=== PATIENT | female | born 1950 | race Caucasian/White ===

== ENCOUNTER → 2017-08-28 07:39 | Outpatient (CLI) | payer MEDICARE, SELFPAY ==
[2017-08-28 08:11] LABS: Add Manual Diff / Slide Review NO; Basophils Percent Auto 0.5 % (0-2); Eosinophils Percent Auto 3.4 % (2-4); Hemoglobin 13.6 g/dL (12.0-16.0); Lymphocytes Percent Auto 26.9 % (25-40); Mean Corpuscular Hemoglobin 31.9 PG (26-34); Monocytes Percent Auto 8.2 % (3-14); Neutrophils Absolute Auto 3300 /uL (3000-5900); Platelet Count 308 X10^3/uL (150-400); Red Blood Cell Count 4.25 X10^6/uL (4.0-5.2); Red Cell Distribution Width 13.9 % (11.6-14.8); White Blood Cell Count 5.5 X10^3/uL (4.5-11.0)
[2017-08-28 08:48] LABS: Alanine Aminotransferase 28 IU/L (9-52); Albumin 4.2 g/dL (3.5-5.0); Albumin Globulin Ratio 1.4 (1.0-2.8); Alkaline Phosphatase 68 U/L (38-126); Aspartate Aminotransferase 39 IU/L (14-36); BUN Creatinine Ratio 17.5 (6-22); Bilirubin Total 0.7 mg/dL (0.2-1.3); Blood Urea Nitrogen 14 mg/dL (7-17); Calcium 8.9 mg/dL (8.4-10.2); Carbon Dioxide 28 mmol/L (22-32); Chloride 104 mmol/L (98-107); Cholesterol 236 mg/dL (140-199); Estimated Glomerular Filt Rate > 60.0 mL/min (>60); Globulin 3.1 g/dL (1.7-4.1); Glucose 86 mg/dL (80-110); HDL Cholesterol 90 mg/dL (40-60); HEMOLYSIS < 15 (0-50); LDL Cholesterol Calculated 127 mg/dL (<100); Sodium 140 mmol/L (137-145); Total Protein 7.3 g/dL (6.3-8.2); Triglycerides 97 mg/dL (35-150)
== END ==
PROVIDERS: Visit Provider Physician Assistant
DX: E78.00 Pure hypercholesterolemia, unspecified (principal); M81.0 Age-related osteoporosis without current pathological fracture; E78.5 Hyperlipidemia, unspecified
CPT/HCPCS: 36415; 80053; 80061; 82306; 85025

== ENCOUNTER → 2018-07-08 15:05 | Outpatient (CLI) | payer MEDICARE, SELFPAY ==
--- NOTE | 2018-07-08 | DI.MG.S_ITS ---
BILATERAL DIGITAL SCREENING MAMMOGRAM 3D/2D WITH CAD: 07/08/2018 CLINICAL: Routine screening. Comparison is made to exam dated: 12/31/2016 mammogram - [facility]. There are scattered fibroglandular elements in both breasts. Current study was also evaluated with a Computer Aided Detection (CAD) system. No significant masses, calcifications, or other findings are seen in either breast. There has been no significant interval change. IMPRESSION: NEGATIVE There is no mammographic evidence of malignancy. A 1 year screening mammogram is recommended. This exam was interpreted at Station ID: [id number]. NOTE: For mammograms, a report in lay terms will be sent to the patient. Approximately 15% of breast malignancies will not be visualized mammographically. In the management of a palpable breast mass, a negative mammogram must not discourage biopsy of a clinically suspicious lesion. Electronically Signed By: Gaudencio chandra/jing:07/08/2018 16:48:49 letter sent: Normal Exam ACR BI-RADS Category 1: Negative 3341F
== END ==
PROVIDERS: Visit Provider Student in an Organized Health Care Education/Training Program
DX: Z12.31 Encounter for screening mammogram for malignant neoplasm of breast (principal)
CPT/HCPCS: 77063; 77067

== ENCOUNTER → 2019-10-26 09:53 | Outpatient (CLI) | payer MEDICARE, SELFPAY ==
--- NOTE | 2019-10-26 09:58 | DI.RAD.S_ITS ---
PROCEDURE: XR KNEE RT 1TO2V INDICATIONS: PAIN IN BOTH KNEES TECHNIQUE: To views of the knee were acquired. COMPARISON: None. FINDINGS: Bones: No fractures or dislocations. No suspicious bony lesions. Cril-ft-txdcjhjr tricompartmental osteoarthritis. Soft tissues: Trace suprapatellar joint effusion. No suspicious soft tissue calcifications. IMPRESSION: 1. Right knee bwte-vz-soqancvu tricompartmental osteoarthritis. 2. Trace nonspecific suprapatellar joint effusion. Dictated by: Annika Will MD, PhD on 10/26/2019 at 17:43 Approved by: Annika Will MD, PhD on 10/26/2019 at 17:44
--- NOTE | 2019-10-26 09:58 | DI.RAD.S_ITS ---
PROCEDURE: XR KNEE LT 1TO2V INDICATIONS: PAIN IN BOTH KNEES TECHNIQUE: 2 views of the knee were acquired. COMPARISON: None. FINDINGS: Bones: No fractures or dislocations. No suspicious bony lesions. Moderate tricompartmental osteoarthritis. Soft tissues: No joint effusion. No suspicious soft tissue calcifications. IMPRESSION: Left knee moderate tricompartmental osteoarthritis. Dictated by: Annika Will MD, PhD on 10/26/2019 at 17:43 Approved by: Annika Will MD, PhD on 10/26/2019 at 17:43
[2019-10-26 12:02] LABS: Add Manual Diff / Slide Review NO; Basophils Absolute Auto 0 /uL (0-100); Basophils Percent Auto 0.5 % (0-2); Eosinophils Absolute Auto 100 /uL (0-450); Eosinophils Percent Auto 2.1 % (2-4); Hematocrit 38.6 % (36-46); Lymphocytes Absolute Auto 1400 /uL (1100-4500); Lymphocytes Percent Auto 25.7 % (25-40); Mean Corpuscular HGB Conc 33.7 % (30-36); Mean Corpuscular Hemoglobin 31.9 PG (26-34); Mean Corpuscular Volume 94.8 fL (80-100); Monocytes Absolute Auto 400 /uL (0-900); Monocytes Percent Auto 6.8 % (3-14); Neutrophils Absolute Auto 3600 /uL (1500-7000); Neutrophils Percent Auto 64.9 % (50-75); Platelet Count 310 X10^3/uL (150-400); Red Blood Cell Count 4.07 X10^6/uL (4.0-5.2); Red Cell Distribution Width 13.4 % (11.6-14.8); White Blood Cell Count 5.5 X10^3/uL (4.5-11.0)
[2019-10-26 12:35] LABS: Alanine Aminotransferase 23 IU/L (<35); Albumin 4.3 g/dL (3.5-5.0); Albumin Globulin Ratio 1.6 (1.0-2.8); Alkaline Phosphatase 96 U/L (38-126); Aspartate Aminotransferase 43 IU/L (14-36); BUN Creatinine Ratio 20.8 (6-22); Bilirubin Total 0.7 mg/dL (0.2-1.3); Blood Urea Nitrogen 16 mg/dL (7-17); Calcium 9.5 mg/dL (8.4-10.2); Carbon Dioxide 29 mmol/L (22-32); Chloride 106 mmol/L (98-107); Cholesterol 256 mg/dL (140-199); Estimated Glomerular Filt Rate > 60.0 mL/min (>60); Globulin 2.7 g/dL (1.7-4.1); Glucose 85 mg/dL (80-110); HDL Cholesterol 93 mg/dL (40-60); HEMOLYSIS < 15 (0-50); LDL Cholesterol Calculated 138 mg/dL (<100); Potassium 4.6 mmol/L (3.4-5.1); Sodium 140 mmol/L (137-145); Triglycerides 125 mg/dL (35-150)
== END ==
PROVIDERS: PCP Student in an Organized Health Care Education/Training Program; Referring Provider Student in an Organized Health Care Education/Training Program; Visit Provider Student in an Organized Health Care Education/Training Program
DX: M25.561 Pain in right knee (principal); M25.562 Pain in left knee; E78.5 Hyperlipidemia, unspecified
CPT/HCPCS: 36415; 73560; 80053; 80061; 85025

== ENCOUNTER → 2019-10-30 08:28 | Outpatient (CLI) | payer MEDICARE, SELFPAY ==
--- NOTE | 2019-10-30 | DI.MG.S_ITS ---
BILATERAL DIGITAL SCREENING MAMMOGRAM 3D/2D WITH CAD: 10/30/2019 CLINICAL: Routine screening. Comparison is made to exams dated: 07/08/2018 [facility] and 12/31/2016 [facility]. There are scattered fibroglandular elements in both breasts. Current study was also evaluated with a Computer Aided Detection (CAD) system. There is a possible new low density asymmetry in the left breast posterior depth central to the nipple seen on the craniocaudal view only. No other significant masses, calcifications, or other findings are seen in either breast. IMPRESSION: INCOMPLETE: NEEDS ADDITIONAL IMAGING EVALUATION The possible new low density asymmetry in the left breast is indeterminate. Additional views with possible ultrasound are recommended. This exam was interpreted at Station ID: [id number]. NOTE: For mammograms, a report in lay terms will be sent to the patient. Approximately 15% of breast malignancies will not be visualized mammographically. In the management of a palpable breast mass, a negative mammogram must not discourage biopsy of a clinically suspicious lesion. Electronically Signed By: Lazaro chester/jing:11/01/2019 07:49:51 letter sent: Additional Imaging Needed ACR BI-RADS Category 0: Incomplete 3340F
== END ==
PROVIDERS: PCP Student in an Organized Health Care Education/Training Program; Referring Provider Physician Assistant; Visit Provider Physician Assistant
DX: Z12.31 Encounter for screening mammogram for malignant neoplasm of breast (principal)
CPT/HCPCS: 77063; 77067

== ENCOUNTER → 2019-11-09 09:29 | Outpatient (CLI) | payer MEDICARE, SELFPAY | PROVIDERS: PCP Student in an Organized Health Care Education/Training Program; Referring Provider Student in an Organized Health Care Education/Training Program; Visit Provider Student in an Organized Health Care Education/Training Program | DX: M81.0 Age-related osteoporosis without current pathological fracture (principal); Z78.0 Asymptomatic menopausal state; Z82.62 Family history of osteoporosis | CPT/HCPCS: 77080 ==

== ENCOUNTER → 2019-11-29 14:08 | Outpatient (CLI) | payer MEDICARE, SELFPAY ==
--- NOTE | 2019-11-29 14:22 | DI.MG.S_ITS ---
Patient Name: PARISH CARRIZALES date: 1950 Sex: F Attending Physician: Napoleon Indications: Date: 11/29/2019 14:13 At the request of: JAYLIN WOODSON Procedure: MM special view LT UNILATERAL LEFT DIGITAL DIAGNOSTIC MAMMOGRAM 3D/2D WITH ADDITIONAL VIEWS: 11/29/2019 CLINICAL: Additional evaluation requested from prior study. Comparison is made to exams dated: 10/30/2019 mammogram, 07/08/2018 mammogram [facility], and 12/31/2016 mammogram - [facility]. There are scattered fibroglandular elements in left breast. The possible asymmetry in the left breast posterior depth central to the nipple seen on the craniocaudal view only is not seen in additional views. No other significant masses or calcifications are seen in the breast. IMPRESSION: BENIGN The asymmetry in the left breast seen on the screening mammogram likely respresents superimposed fibroglandular tissue and is benign. There is no mammographic evidence of malignancy. A 1 year screening mammogram is recommended. This exam was interpreted at Station ID: [id number]. NOTE: For mammograms, a report in lay terms will be sent to the patient. Approximately 15% of breast malignancies will not be visualized mammographically. In the management of a palpable breast mass, a negative mammogram must not discourage biopsy of a clinically suspicious lesion. Electronically Signed By: Esthela Newton M.D. lk/:11/29/2019 14:38:00 letter sent: Normal Exam Continued Report - Page 2 of 2 Patient Name: PARISH CARRIZALES date: 1950 Sex: F Attending Physician: Napoleon Indications: Date: 11/29/2019 14:13 At the request of: JAYLIN WOODSON Procedure: MM special view LT ACR BI-RADS Category 2: Benign Finding(s) 3342F
== END ==
PROVIDERS: PCP Student in an Organized Health Care Education/Training Program; Referring Provider Physician Assistant; Visit Provider Physician Assistant
DX: R92.8 Other abnormal and inconclusive findings on diagnostic imaging of breast (principal)
CPT/HCPCS: 77065; G0279

== ENCOUNTER → 2020-05-08 13:28 | Outpatient (CLI) | payer OTHER, SELFPAY ==
[2020-05-08 16:07] LABS: COVID19 -Nasal RAPID Negative (Negative)
== END ==
PROVIDERS: PCP Student in an Organized Health Care Education/Training Program; Visit Provider Physician Assistant
DX: Z01.812 Encounter for preprocedural laboratory examination (principal); Z20.822 Contact with and (suspected) exposure to COVID-19
CPT/HCPCS: 87635; C9803

== ENCOUNTER 2020-05-10 08:16 | Day surgery (SDC) | payer OTHER, SELFPAY ==
--- NOTE | 2020-05-09 19:07 | PM.PREOP ---
Pre-operative Note COVID-19 COVID-19 status: Negative Interval Note History & Physical reviewed/Exam performed by Physician: Yes Changes to H&P: No
[2020-05-10] MEDS: PROPARACAINE 0.5% OPHTH SOL 2 DROPS EYE-OP (08:54)
[2020-05-10] MEDS: CATARACT EYE COMPOUND (10 DROPS/SYRINGE) 3 DROPS EYE-OP (08:56)
[2020-05-10 08:57] VITALS: BP 140/77; PULSE 77; RESP 16; TEMP 36.6; O2SAT 100; BMI 21.4
--- NOTE | 2020-05-10 09:52 | SUR.OPER ---
Supine on eye stretcher, head on extension cradle secured with tape. Arms tucked at sides with blanket. Pillow under knees.
--- NOTE | 2020-05-10 10:17 | PM.OP.1 ---
Operative Date/Time/Diagnoses Date of procedure: 05/10/20 Time of procedure: 09:45
--- NOTE | 2020-05-10 10:21 | P.OP_ITS ---
Operative Date/Time/Diagnoses Date of procedure: 05/10/20 Time of procedure: 09:45 Procedure & Clinicians Procedure: Preoperative diagnoses: 1. Right nuclear sclerotic and cortical cataract. 2. Dry eye syndrome Postoperative diagnoses: 1. Cataract removed by phacoemulsification with placement of posterior chamber intraocular lens. Procedure: Phacoemulsification with posterior chamber intraocular lens implant Surgeon: Zahida Malcolm MD Complications: None Specimen: None Implant: ZCBOO+17.0 Blood loss: None Anesthesia: Retrobulbar with monitored standby Description of procedure: Patient presents with a complaint of decreased vision due to cataract which is affecting activities of daily living, especially driving She is an avid swimmer and swims a mile a day. The patient wants surgery to improve vision. The patient was taken to the operating room and given IV sedation. A retrobulbar block consisting of 6 cc of 2% xylocaine without epinephrine mixed half and half with 0.5% Marcaine with 1 cc of hyaluronidase added is placed between the medial and lateral 1/3 of the inferior orbital rim. The eye is manually massaged for 30 sec, prepped using Betadine solution, and draped in the usual sterile fashion. She has a very deep set eye. Temporal approach was made, a 1 mm side-port incision was made 90? from the proposed clear corneal incision position. Phenylephrine 1.5% mixed with 1% xylocaine 0.2 cc was placed into the anterior chamber. Viscoat followed by Catie was then placed. A 2.6 mm clear incision with a 2.6 mm blade was placed. A 360 degree capsulorrhexis style capsulotomy was then performed with a cystitome needle on a Healon. Hydrodelineation and hydrodissection were performed. The phacoemulsification unit is introduced, and sculpting notice used to groove the central lens. It is then removed in chopping mode. Epi nucleus is removed with epinuclear mode and irrigation aspiration was used to remove the peripheral cortex. The posterior capsule is polished. The intraocular lens is selected, inspected, power confirmed, and placed in the posterior chamber. The wound was stromally hydrated and tested for leaks, there was none and it was left sutureless. Vigamox 0.1 cc was placed into the anterior chamber. Kenalog 0.2 cc was placed in the superior subconjunctival space. A drop of antibiotic and was placed and the eye was patched and shielded. The patient was stable and returned to the recovery room in excellent condition. Dictated by: Zahida Malcolm MD Copy to: [facility] Same procedure as scheduled: Yes
[2020-05-10] MEDS: PHENYLEPHRINE/LIDOCAINE VIAL (OR) 0.2 ML EYE-OP (10:48)
[2020-05-10] MEDS: LIDOCAINE 2% 4 ML, BUPIVACAINE 0.5% (PF) 4 ML, HYALURONIDASE 150 UNIT INJ (10:48)
[2020-05-10] MEDS: CHONDROIDTIN/SOD HYALURONATE 1.05 ML SYRINGE INTRAOCULA (10:50)
[2020-05-10] MEDS: HYALURONATE SODIUM 10 MG/ML SYRINGE INJ (10:50)
[2020-05-10] MEDS: MOXIFLOXACIN INJ 5 MG/ML VIAL EYE-OP (10:50)
[2020-05-10] MEDS: BALANCED SALT IRRIG SOLN NO.2 500 ML, EPINEPHrine 1 MG IRR (10:51)
[2020-05-10] MEDS: ERYTHROMYCIN OPHTH 1 GM OINT 1 APPLIC EYE-RIGHT (10:52)
[2020-05-10 11:30] VITALS: BP 131/71; PULSE 65; RESP 16; TEMP 36.6; O2SAT 100
== END 2020-05-10 11:34 | disposition home or self-care (01) ==
PROVIDERS: PCP Student in an Organized Health Care Education/Training Program; Referring Provider Ophthalmology; Visit Provider Ophthalmology
PROC: (CPT 66984; principal; 2020-05-10 09:45)
DX: H25.811 Combined forms of age-related cataract, right eye (principal); H04.129 Dry eye syndrome of unspecified lacrimal gland
CPT/HCPCS: 66984; J0171; J2250; J3010; J3470

== ENCOUNTER → 2020-05-22 10:22 | Outpatient (CLI) | payer OTHER, SELFPAY ==
[2020-05-22 13:05] LABS: COVID19 -Nasal RAPID Negative (Negative)
== END ==
PROVIDERS: Visit Provider Physician Assistant
DX: Z01.812 Encounter for preprocedural laboratory examination (principal); Z20.822 Contact with and (suspected) exposure to COVID-19
CPT/HCPCS: 87635; C9803

== ENCOUNTER 2020-05-24 07:27 | Day surgery (SDC) | payer OTHER, SELFPAY ==
--- NOTE | 2020-05-23 18:46 | PM.PREOP ---
Pre-operative Note COVID-19 COVID-19 status: Negative Interval Note History & Physical reviewed/Exam performed by Physician: Yes Changes to H&P: No
--- NOTE | 2020-05-24 07:22 | P.OP_ITS ---
Operative Date/Time/Diagnoses Date of procedure: 05/24/20 Time of procedure: 08:45 Procedure & Clinicians Procedure: Preoperative diagnoses: 1. Left nuclear sclerotic and cortical cataract with multiple spokes through the visual axis. 2. Desire for mini mono vision target. 3. Arthritis Postoperative diagnoses: 1. Cataract removed by phacoemulsification with placement of posterior chamber intraocular lens. Procedure: Complex Phacoemulsification with posterior chamber intraocular lens implant Surgeon: Zahida Malcolm MD Complications: None Specimen: None Implant: +19.5 Blood loss: None Anesthesia: Retrobulbar with monitored standby Description of procedure: Patient presents with a complaint of decreased vision due to cataract which is affecting activities of daily living both distance and near in causing halos. She has had right cataract surgery and is happy with the distance target would like better reading in this eye. She chooses a target of -1.25 diopters which will give her computer distance. She will still need glasses for fine reading. She has a very deep set eye. She is very athletic and is a lap swimmer and pursues multiple athletic activities. The patient wants surgery to improve vision. The patient was taken to the operating room and given IV sedation. A retrobulbar block consisting of 6 cc of 2% xylocaine without epinephrine mixed half and half with 0.5% Marcaine with 1 cc of hyaluronidase added is placed between the medial and lateral 1/3 of the inferior orbital rim. The eye is manually massaged for 30 sec, prepped using Betadine solution, and draped in the usual sterile fashion. Temporal approach was made, a 1 mm side-port incision was made 90? from the proposed clear corneal incision position. Phenylephrine 1.5% mixed with 1% xylocaine 0.2 cc was placed into the anterior chamber. Due to cortical spokes through the visual axis which will increase surgical risk placing the capsulotomy I decided to use capsular dye to stain the anterior capsule. It was placed by 1st putting in an air bubble and putting in capsular dye. The excess dye was then removed using BSS. Viscoat followed by Healon was then placed. A 2.6 mm clear incision with a 2.6 mm blade was placed. The anterior A 360 degree capsulorrhexis style capsulotomy was then performed with a cystitome needle on a Healon greatly aided by capsular. Hydrodelineation and hydrodissection were performed. The phacoemulsification unit is introduced, and sculpting notice used to groove the central lens. It is then removed in chopping mode. Epi nucleus is removed with epinuclear mode and irrigation aspiration was used to remove the peripheral cortex. The posterior capsule is polished. The intraocular lens is selected, inspected, power confirmed, and placed in the posterior chamber. The wound was stromally hydrated and tested for leaks, there was none and it was left sutureless. Vigamox 0.1 cc was placed into the anterior chamber. Kenalog 0.2 cc was placed in the superior subconjunctival space. A drop of antibiotic and was placed and the eye was patched and shielded. The patient was stable and returned to the recovery room in excellent condition. Dictated by: Zahida Malcolm MD Copy to: [facility] Same procedure as scheduled: Yes
[2020-05-24] MEDS: PROPARACAINE 0.5% OPHTH SOL 2 DROPS EYE-OP (07:57)
[2020-05-24] MEDS: CATARACT EYE COMPOUND (10 DROPS/SYRINGE) 3 DROPS EYE-OP (08:00)
[2020-05-24 08:01] VITALS: BP 129/79; PULSE 72; RESP 16; TEMP 36.9; O2SAT 100; BMI 21.4
[2020-05-24] MEDS: LIDOCAINE 2% 4 ML, BUPIVACAINE 0.5% (PF) 4 ML, HYALURONIDASE 150 UNIT INJ (08:45)
[2020-05-24] MEDS: CHONDROIDTIN/SOD HYALURONATE 1.05 ML SYRINGE INTRAOCULA (08:59)
[2020-05-24] MEDS: ERYTHROMYCIN OPHTH 1 GM OINT 1 APPLIC EYE-LEFT (08:59)
[2020-05-24] MEDS: HYALURONATE SODIUM 10 MG/ML SYRINGE INJ (08:59)
[2020-05-24] MEDS: TRYPAN BLUE 0.5 ML SYRINGE INJ (09:00)
[2020-05-24] MEDS: MOXIFLOXACIN INJ 5 MG/ML VIAL EYE-OP (09:00)
[2020-05-24] MEDS: PHENYLEPHRINE/LIDOCAINE VIAL (OR) 0.2 ML EYE-OP (09:00)
[2020-05-24] MEDS: TRIAMCINOLONE 50 MG/5 ML VIAL INJ (09:00)
[2020-05-24] MEDS: BALANCED SALT IRRIG SOLN NO.2 500 ML, EPINEPHrine 1 MG IRR (09:02)
[2020-05-24 09:25] VITALS: BP 123/69; PULSE 64; RESP 12; TEMP 36.6; O2SAT 96
== END 2020-05-24 09:38 | disposition home or self-care (01) ==
LOC: OR 07:30
PROVIDERS: Referring Provider Ophthalmology; Visit Provider Ophthalmology
PROC: (CPT 66984; principal; 2020-05-24 08:45)
DX: H25.812 Combined forms of age-related cataract, left eye (principal)
CPT/HCPCS: 66984; J0171; J2704; J3301; J3470

== ENCOUNTER → 2020-10-30 14:36 | Outpatient (CLI) | payer OTHER, SELFPAY ==
--- NOTE | 2020-10-30 | DI.MG.S_ITS ---
BILATERAL DIGITAL SCREENING MAMMOGRAM 3D/2D WITH CAD: 10/30/2020 CLINICAL: Routine screening. Comparison is made to exams dated: 11/29/2019 mammogram, 10/30/2019 mammogram, 07/08/2018 mammogram - [facility], and 12/31/2016 mammogram - [facility]. The tissue of both breasts is heterogeneously dense. This may lower the sensitivity of mammography. Current study was also evaluated with a Computer Aided Detection (CAD) system. No significant masses, calcifications, or other findings are seen in either breast. There has been no significant interval change. IMPRESSION: NEGATIVE There is no mammographic evidence of malignancy. A 1 year screening mammogram is recommended. This exam was interpreted at Station ID: [id number]. NOTE: For mammograms, a report in lay terms will be sent to the patient. Approximately 15% of breast malignancies will not be visualized mammographically. In the management of a palpable breast mass, a negative mammogram must not discourage biopsy of a clinically suspicious lesion. Electronically Signed By: Gaudencio chandra/jing:10/30/2020 15:11:45 letter sent: Normal Exam ACR BI-RADS Category 1: Negative 3341F
== END ==
PROVIDERS: PCP Student in an Organized Health Care Education/Training Program; Referring Provider Student in an Organized Health Care Education/Training Program; Visit Provider Student in an Organized Health Care Education/Training Program
DX: Z12.31 Encounter for screening mammogram for malignant neoplasm of breast (principal)
CPT/HCPCS: 77063; 77067

== ENCOUNTER → 2021-12-25 08:23 | Outpatient (CLI) | payer OTHER, SELFPAY ==
[2021-12-25 10:19] LABS: Add Manual Diff / Slide Review NO; Basophils Absolute Auto 0 /uL (0-100); Basophils Percent Auto 0.7 % (0-2); Eosinophils Absolute Auto 100 /uL (0-450); Eosinophils Percent Auto 2.5 % (2-4); Hematocrit 36.6 % (36-46); Hemoglobin 12.7 g/dL (12.0-16.0); Lymphocytes Absolute Auto 1100 /uL (1100-4500); Lymphocytes Percent Auto 21.2 % (25-40); Mean Corpuscular HGB Conc 34.7 % (30-36); Mean Corpuscular Hemoglobin 31.9 PG (26-34); Monocytes Absolute Auto 400 /uL (0-900); Monocytes Percent Auto 7.7 % (3-14); Neutrophils Absolute Auto 3500 /uL (1500-7000); Neutrophils Percent Auto 67.9 % (50-75); Platelet Count 331 X10^3/uL (150-400); Red Blood Cell Count 3.98 X10^6/uL (4.0-5.2); Red Cell Distribution Width 13.3 % (11.6-14.8); White Blood Cell Count 5.1 X10^3/uL (4.5-11.0)
[2021-12-25 10:38] LABS: Alanine Aminotransferase 19 IU/L (<35); Albumin Globulin Ratio 1.4 (1.0-2.8); Alkaline Phosphatase 73 U/L (38-126); Aspartate Aminotransferase 36 IU/L (14-36); BUN Creatinine Ratio 21.8 (6-22); Bilirubin Total 0.6 mg/dL (0.2-1.3); Blood Urea Nitrogen 17 mg/dL (7-17); Calcium 8.7 mg/dL (8.4-10.2); Carbon Dioxide 27 mmol/L (22-32); Chloride 103 mmol/L (98-107); Cholesterol 222 mg/dL (140-199); Estimated Glomerular Filt Rate > 60 mL/min (>60); Globulin 2.8 g/dL (1.7-4.1); Glucose 89 mg/dL (80-110); HDL Cholesterol 82 mg/dL (40-60); HEMOLYSIS < 15 (0-50); LDL Cholesterol Calculated 126 mg/dL (<100); Potassium 4.4 mmol/L (3.4-5.1); Sodium 138 mmol/L (137-145); Total Protein 6.8 g/dL (6.3-8.2); Triglycerides 68 mg/dL (35-150)
[2021-12-25 10:55] LABS: Vitamin D 25 Hydroxy (D3) 46.2 ng/mL (30.0-100.0)
== END ==
PROVIDERS: PCP Student in an Organized Health Care Education/Training Program; Referring Provider Student in an Organized Health Care Education/Training Program; Visit Provider Student in an Organized Health Care Education/Training Program
DX: Z00.00 Encounter for general adult medical examination without abnormal findings (principal); E78.5 Hyperlipidemia, unspecified
CPT/HCPCS: 36415; 80053; 80061; 82306; 85025

== ENCOUNTER → 2022-01-03 14:07 | Outpatient (CLI) | payer OTHER, SELFPAY | PROVIDERS: PCP Student in an Organized Health Care Education/Training Program; Referring Provider Student in an Organized Health Care Education/Training Program; Visit Provider Student in an Organized Health Care Education/Training Program | DX: M81.0 Age-related osteoporosis without current pathological fracture (principal); Z79.83 Long term (current) use of bisphosphonates; Z78.0 Asymptomatic menopausal state | CPT/HCPCS: 77080 ==

== ENCOUNTER → 2023-01-31 15:44 | Outpatient (CLI) | payer OTHER, SELFPAY ==
--- NOTE | 2023-01-31 | DI.MG.S_ITS ---
BILATERAL DIGITAL SCREENING MAMMOGRAM 3D/2D WITH CAD: 01/31/2023 CLINICAL: Routine screening. Comparison is made to exams dated: 10/30/2020 mammogram, 10/30/2019 mammogram, and 07/08/2018 mammogram - [facility]. Both breasts are heterogeneously dense, which may obscure small masses (category c / 51-75% glandular tissue). Current study was also evaluated with a Computer Aided Detection (CAD) system. No significant masses, calcifications, or other findings are seen in either breast. There has been no significant interval change. IMPRESSION: NEGATIVE There is no mammographic evidence of malignancy. A 1 year screening mammogram is recommended. Based on the Tyrer Cuzick model (a risk assessment model) the patient's lifetime risk is 4.3% and her 10 year risk is 3.9%. According to the ACR, ACS, and NCCN guidelines, an annual breast MRI exam along with mammogram is recommended if the patient's lifetime risk is 20% or greater. This exam was interpreted at Station ID: [id number]. NOTE: For mammograms, a report in lay terms will be sent to the patient. Approximately 15% of breast malignancies will not be visualized mammographically. In the management of a palpable breast mass, a negative mammogram must not discourage biopsy of a clinically suspicious lesion. Electronically Signed By: Lazaro chester/jing:01/31/2023 19:59:50 letter sent: Normal Exam ACR BI-RADS Category 1: Negative 3341F
== END ==
PROVIDERS: PCP Student in an Organized Health Care Education/Training Program; Referring Provider Student in an Organized Health Care Education/Training Program; Visit Provider Student in an Organized Health Care Education/Training Program
DX: Z12.31 Encounter for screening mammogram for malignant neoplasm of breast (principal)
CPT/HCPCS: 77063; 77067

== ENCOUNTER → 2023-12-05 11:40 | Outpatient (CLI) | payer OTHER, SELFPAY ==
--- NOTE | 2023-12-05 11:43 | DI.RAD.S_ITS ---
PROCEDURE: XR ANKLE RT MIN 3V INDICATIONS: Pain in right ankle and joints of right foot TECHNIQUE: 3 views of the ankle were acquired. COMPARISON: None. FINDINGS: Bones: Minimally displaced fracture is seen at the distal tip of the fibula below the level of the syndesmosis. Mortise joint is intact. A metal screw is seen in the proximal 1st metatarsal. Degenerative changes are seen in the tarsometatarsal joints. There is mild generalized osteopenia. Soft tissues: Soft tissue edema is most prominent over the lateral malleolus. IMPRESSION: Small minimally displaced fracture at the distal tip of the fibula with overlying soft tissue edema. Multiple unsuccessful attempts were made to contact the ordering provider at the time of this dictation. Approved by: Jimmy Addison M.D. on 12/05/2023 at 17:06
== END ==
LOC: RAD 11:41
PROVIDERS: PCP Student in an Organized Health Care Education/Training Program
DX: S82.831A Other fracture of upper and lower end of right fibula, initial encounter for closed fracture (principal); M25.571 Pain in right ankle and joints of right foot
CPT/HCPCS: 73610

== ENCOUNTER → 2024-02-05 13:15 | Outpatient (CLI) | payer OTHER, SELFPAY ==
--- NOTE | 2024-02-05 13:15 | DI.MG.S_ITS ---
BILATERAL DIGITAL SCREENING MAMMOGRAM 3D/2D WITH CAD: 02/05/2024 CLINICAL: Routine screening. Comparison is made to exams dated: 01/31/2023 mammogram, 10/30/2020 mammogram, 10/30/2019 mammogram, 11/29/2019 mammogram, 07/08/2018 mammogram - [facility], and 12/31/2016 mammogram - [facility]. The breasts are heterogeneously dense, which may obscure small masses (category c / 51-75% glandular tissue). Current study was also evaluated with a Computer Aided Detection (CAD) system. No significant masses, calcifications, or other findings are seen in either breast. There has been no significant interval change. IMPRESSION: NEGATIVE There is no mammographic evidence of malignancy. A 1 year screening mammogram is recommended. Based on the Tyrer Cuzick model (a risk assessment model) the patient's lifetime risk is 4.0% and her 10 year risk is 4.0%. According to the ACR, ACS, and NCCN guidelines, an annual breast MRI exam along with mammogram is recommended if the patient's lifetime risk is 20% or greater. This exam was interpreted at Station ID: [id number]. NOTE: For mammograms, a report in lay terms will be sent to the patient. Approximately 15% of breast malignancies will not be visualized mammographically. In the management of a palpable breast mass, a negative mammogram must not discourage biopsy of a clinically suspicious lesion. Electronically Signed By: Chandrika Vergara M.D., Ph.D. jennifer/jing:02/05/2024 22:17:38 letter sent: Normal Exam ACR BI-RADS Category 1: Negative
== END ==
PROVIDERS: PCP Family Medicine; Referring Provider Family Medicine; Visit Provider Family Medicine
DX: Z12.31 Encounter for screening mammogram for malignant neoplasm of breast (principal); R92.333 Mammographic heterogeneous density, bilateral breasts
CPT/HCPCS: 77063; 77067

== ENCOUNTER → 2024-04-26 12:54 | Outpatient (CLI) | payer MEDICARE, SELFPAY ==
--- NOTE | 2024-04-26 12:55 | DI.RAD.S_ITS ---
PROCEDURE: XR DEXA AXIAL SKELETON INDICATIONS: SCREENING FOR OSTEOPOROSIS COMPARISON: [facility], , XR DEXA AXIAL SKELETON, 01/03/2022, 14:34. [facility], CR, XR DEXA AXIAL SKELETON, 11/09/2019, 9:58. FINDINGS: Lumbar Spine (L1-L3): Bone mineral density 0.777 g/cm2, T score -2.2, previously -2.3. The lowest T-score is -2.5 for the L1 vertebral body. Left Femoral Neck: Bone mineral density 0.63 g/cm2, T score -2.0. Left Hip: Bone mineral density 0.661 g/cm2, T score -2.3, previously -2.0. Fracture Risk Calculation (when applicable): 10-year fracture risk of a major osteoporotic fracture 12 percent and of a hip fracture 3.1 percent. (T score greater or equal to -1.0 to: NORMAL) (T score from -1.1 to -2.4: OSTEOPENIA) (T score less than or equal to -2.5: OSTEOPOROSIS) IMPRESSION: 1. Osteopenia of the lumbar spine, although the L1 vertebral body is osteoporotic. 2. Osteopenia of the left hip and femoral neck. Follow-up guidelines as follows: Osteoporosis: Consider a repeat DEXA and Vertebral Fracture Assessment (VFA) exam in 2 years or sooner if medically necessary, to reassess this patient's status. Osteopenia: Consider a repeat DEXA in 2-3 years to reassess this patient's status, or if there is a new clinical indication. Normal: Consider a repeat DEXA in 5 years or sooner, or if there is a new clinical indication. All treatment decisions require clinical judgment and consideration of individual patient factors, including patient preferences, comorbidities, previous drug use, risk factors not captured in the FRAX model (e.g., frailty, falls, vitamin D deficiency, increased bone turnover, interval significant decline in bone density ) and possible under- or over-estimation of fracture risk by FRAX. In addition, the NOF Guide recommends that FDA-approved medical therapies be considered in postmenopausal women and men age >= 50 years with a: * Hip or vertebral (clinical or morphometric) fracture * T-score of <=-2.5 at the spine or hip * Ten-year fracture probability by FRAX of >= 3% for hip fracture or >=20% for major osteoporotic fracture. Dictated by: Amador Prieto M.D. on 04/26/2024 at 15:31 Approved by: Amador Prieto M.D. on 04/26/2024 at 15:33
== END ==
PROVIDERS: PCP Family Medicine; Referring Provider Family Medicine; Visit Provider Family Medicine
DX: M81.0 Age-related osteoporosis without current pathological fracture (principal)
CPT/HCPCS: 77080

== ENCOUNTER 2024-09-04 18:46 | Emergency (ER) | payer MEDICARE, SELFPAY ==
[2024-09-04] VITALS (23 sets, daily range): BP systolic 124–158; BP diastolic 62–98; PULSE 57–71; RESP 12–24; TEMP 36.6–37.1; O2SAT 88–99; BMI 20.3
--- NOTE | 2024-09-04 19:05 | DI.RAD.S_ITS ---
PROCEDURE: XR WRIST LT MIN 3V INDICATIONS: fall/swelling/pain TECHNIQUE: 4 views of the wrist were acquired. COMPARISON: None. FINDINGS: Bones: Comminuted impacted distal radial fracture with dorsal apex angulation. Soft tissues: No suspicious soft tissue calcifications. IMPRESSION: Comminuted impacted distal radial fracture. Approved by: Chandrika Vergara M.D.,Ph.D. on 09/04/2024 at 20:19
--- NOTE | 2024-09-04 19:05 | DI.RAD.S_ITS ---
PROCEDURE: XR WRIST RT MIN 3V INDICATIONS: fall/swelling/pain TECHNIQUE: 4 views of the wrist were acquired. COMPARISON: None. FINDINGS: Bones: No fractures or dislocations. No suspicious bony lesions. Soft tissues: No suspicious soft tissue calcifications. IMPRESSION: No acute bony abnormality. Approved by: Chandrika Vergara M.D.,Ph.D. on 09/04/2024 at 20:19
--- NOTE | 2024-09-04 21:43 | ED_ITS ---
HPI - Fall General Chief Complaint: Fall Stated Complaint: Fell, wrist pain in both, cut lip Time Seen by Provider: 09/04/24 19:44 Source: patient Mode of arrival: Ambulatory History of Present Illness HPI Narrative: Patient is a 74-year-old female without any significant past medical history presenting from the ED for evaluation of wrist pain, she states that she was on the rocks had mechanical trip and fall and landed on her hands, patient complaining more of left wrist pain, denies any other symptoms at this time. Denies LOC not on any blood thinners Related Data Home Medications ?Medication ?Instructions ?Recorded ?Confirmed alendronate 70 mg tablet 70 mg PO QWEEK 05/10/2012/06 calcium 600 mg capsule 600 mg PO DAILY 05/10/2012/06 Allergies Allergy/AdvReac Type Severity Reaction Status Date / Time No Known Drug Allergies Allergy Verified 09/04/24 18:58 Review of Systems Review of Systems Narrative: General: Denies fever, chills, weight loss HEENT: Cut lip, Denies headache, eye drainage, eye irritation, head trauma, sore throat, voice change Cardiovascular: Denies any chest pain, palpitations, tachycardia Respiratory: Denies any shortness of breath, cough, wheeze, stridor GI/: Denies any abdominal pain, nausea, vomiting, diarrhea, bright red blood per rectum, melanotic stools, urinary frequency, urinary retention, dysuria, hematuria MSK: Positive wrist pain bilaterally Skin: Denies any rashes, lesions, discoloration Neuro: Denies any headache, lightheadedness, dizziness, fainting, weakness Psych: Denies SI/HI Patient History Medical History Arthritis Osteoporosis Social History household members: spouse Smoking Status: Never smoker alcohol intake: current Smoking Status: Never smoker alcohol intake frequency: a few times a month Exam Narrative Exam Narrative: General: Cooperative, well-developed, not in acute distress HEENT: Normocephalic, atraumatic, PERRLA, normal sclera, eyelids normal small lip abrasion but not active bleeding no indication for laceration does not involve the vermilion border Neck: Active full range of motion, atraumatic no tenderness to palpation of the midline spine Chest: Normal to inspection, negative crepitus, no overlying erythema ecchymosis Respiratory: Normal respiratory effort, not in acute respiratory distress, clear to auscultation bilaterally negative cough, wheeze, tachypnea, rhonchi, rales Cardiology: Regular rate rhythm negative gallop, murmur, rubs GI/: No tenderness to palpation, soft, non rigid, normal to inspection, exam deferred MSK: Full active range of motion in all 4 extremities, atraumatic, gross deformity of the left wrist, neurovascularly intact Skin: No rashes or lesions noted Neuro: Alert awake oriented x3, moves all 4 extremities spontaneously, cranial nerves intact, able to answer all questions appropriately follows commands appropriately Psych: Cooperative, negative suicidal or homicidal ideations Initial Vital Signs Initial Vital Signs: Vital Signs Temperature 98.7 F 09/04/24 18:58 Pulse Rate 71 09/04/24 18:58 Respiratory Rate 18 09/04/24 18:58 Blood Pressure 152/78 H 09/04/24 18:58 Pulse Oximetry 99 09/04/24 18:58 Oxygen Delivery Method Room Air 09/04/24 18:58 Procedures Orthopedic Fracture Reduction Fracture #1: Time of procedure: 22:38 Time Out Performed: Yes Side: left Fracture Reduction Location: radius Analgesia: procedural sedation Technique: direct manipulation Post Reduction X-rays Demonstrate: acceptable reduction Post-reduction neuro exam: intact Post-reduction vascular exam: intact Splint Applied: Yes Patient Tolerated Procedure: Well Procedural Sedation Time of procedure: 22:38 Consent signed: Yes Time out performed: Yes Indication: fracture/dislocation reduction ASA Class: I Mallampati Airway Classification: Class I Preparation: monitoring and evaluation advisor applied, pulse oximeter, capnometry used, supplemental O2 applied, suction/airway equipment at bedside and IV secured IV Propofol dose (mg): 35 ED Sedation Level: Moderate (Concious) Patient Tolerated Procedure: Well Complications: none Course Orders Ordered: ED Orders 09/04/24 19:05 XR wrist LT min 3V Stat XR wrist RT min 3V Stat 09/04/24 22:50 XR wrist LT min 3V Stat Discontinued Medications Diphtheria/Tetanus/Acell Pertussis (Tet,Diph,Pertuss(Acell),Vac/Pf 0.5 Ml Syringe) 0.5 ml IM .ONCE ONE Stop: 09/04/24 21:59 Last Admin: 09/04/24 22:13 Dose: 0.5 ml Documented By: ANTONIO Sodium Chloride (Normal Saline 0.9%) 1,000 mls @ 1,000 mls/hr IV BOLUS ONE Stop: 09/04/24 22:58 Last Infusion: 09/04/24 23:24 Dose: Infused Documented By: Admin: 09/04/24 22:21 Dose: 1,000 mls/hr Documented By: ANTONIO Morphine Sulfate (Morphine 2 Mg/Ml Inj) 2 mg IV NOW ONE Stop: 09/04/24 23:29 Last Admin: 09/04/24 23:44 Dose: 2 mg Documented By: ANTONIO Propofol (Propofol 200 Mg/20 Ml Vial) 50 mg 1 mg/kg (50 mg) IV NOW ONE Stop: 09/04/24 21:59 Last Admin: 09/04/24 22:40 Dose: 35 mg Documented By: ANTONIO Vital Signs Vital signs: Vital Signs - 8 hr 09/04/24 18:58 09/04/24 19:37 09/04/24 19:38 Temperature 98.7 F Pulse Rate 71 70 Respiratory Rate 18 Blood Pressure 152/78 H 145/66 H Pulse Oximetry 99 96 Oxygen Delivery Method Room Air Oxygen Flow Rate 09/04/24 19:38 09/04/24 20:00 09/04/24 20:00 Temperature Pulse Rate 67 65 Respiratory Rate Blood Pressure 147/70 H Pulse Oximetry 96 98 Oxygen Delivery Method Oxygen Flow Rate 09/04/24 20:30 09/04/24 20:31 09/04/24 20:31 Temperature Pulse Rate 64 63 Respiratory Rate Blood Pressure 127/98 H Pulse Oximetry 96 96 Oxygen Delivery Method Oxygen Flow Rate 09/04/24 21:05 09/04/24 21:06 09/04/24 21:06 Temperature Pulse Rate 58 L 58 L Respiratory Rate 13 14 Blood Pressure 148/65 H Pulse Oximetry 97 98 Oxygen Delivery Method Room Air Oxygen Flow Rate 09/04/24 21:30 09/04/24 21:30 09/04/24 22:00 Temperature Pulse Rate 58 L Respiratory Rate 12 Blood Pressure 149/67 H 154/72 H Pulse Oximetry 96 Oxygen Delivery Method Oxygen Flow Rate 09/04/24 22:00 09/04/24 22:30 09/04/24 22:30 Temperature Pulse Rate 60 59 L Respiratory Rate 16 17 Blood Pressure 150/69 H Pulse Oximetry 97 97 Oxygen Delivery Method Oxygen Flow Rate 09/04/24 22:35 09/04/24 22:35 09/04/24 22:36 Temperature 97.8 F Pulse Rate 59 L 59 L Respiratory Rate 18 18 Blood Pressure 139/66 139/66 Pulse Oximetry 97 97 Oxygen Delivery Method Room Air Oxygen Flow Rate 09/04/24 22:36 09/04/24 22:40 09/04/24 22:40 Temperature Pulse Rate 60 62 Respiratory Rate 23 24 Blood Pressure 158/74 H Pulse Oximetry 98 98 Oxygen Delivery Method Nasal Cannula Oxygen Flow Rate 2 09/04/24 22:40 09/04/24 22:45 09/04/24 22:45 Temperature Pulse Rate 62 62 Respiratory Rate 24 20 Blood Pressure 158/74 H 124/62 Pulse Oximetry 98 98 Oxygen Delivery Method Oxygen Flow Rate 09/04/24 22:45 09/04/24 22:50 09/04/24 22:50 Temperature Pulse Rate 62 59 L Respiratory Rate 20 22 Blood Pressure 124/62 124/69 Pulse Oximetry 98 99 Oxygen Delivery Method Oxygen Flow Rate 2 09/04/24 22:50 09/04/24 22:54 09/04/24 22:55 Temperature Pulse Rate 59 L 57 L Respiratory Rate 22 19 Blood Pressure 124/69 130/71 Pulse Oximetry 99 94 Oxygen Delivery Method Nasal Cannula Oxygen Flow Rate 2 4 09/04/24 22:55 09/04/24 22:55 09/04/24 23:00 Temperature Pulse Rate 58 L 57 L Respiratory Rate 22 19 Blood Pressure 130/71 133/66 Pulse Oximetry 88 L 94 Oxygen Delivery Method Nasal Cannula Oxygen Flow Rate 2 4 09/04/24 23:00 09/04/24 23:00 09/04/24 23:05 Temperature Pulse Rate 58 L 58 L Respiratory Rate 19 19 Blood Pressure 133/66 135/75 Pulse Oximetry 94 94 Oxygen Delivery Method Nasal Cannula Oxygen Flow Rate 4 09/04/24 23:05 09/04/24 23:10 09/04/24 23:10 Temperature Pulse Rate 61 61 Respiratory Rate 21 19 Blood Pressure 134/80 Pulse Oximetry 99 97 Oxygen Delivery Method Room Air Oxygen Flow Rate 09/04/24 23:15 09/04/24 23:15 Temperature Pulse Rate 58 L Respiratory Rate 22 Blood Pressure 140/70 Pulse Oximetry 99 Oxygen Delivery Method Oxygen Flow Rate MDM - Fall Differential Diagnosis Differential diagnosis: Likely other (Fracture, contusion,) Lab Data Labs: Point of Care Testing Test Results Not applicable Imaging Data Extremity x-ray #1: Radiologist's Impression: [address] [address] XRay Report Signed Patient: Mona Wright MR#: [id number] : 1950 Acct:[id number] Age/Sex: 74 / F Date of Service: 09/04/24 Loc: ED Accession Number: [id number] Procedure: XR wrist LT min 3V Ordering Provider: Andry Lane D.O. PROCEDURE: XR WRIST LT MIN 3V INDICATIONS: fall/swelling/pain TECHNIQUE: 4 views of the wrist were acquired. COMPARISON: None. FINDINGS: Bones: Comminuted impacted distal radial fracture with dorsal apex angulation. Soft tissues: No suspicious soft tissue calcifications. IMPRESSION: Comminuted impacted distal radial fracture. Extremity x-ray #2: Radiologist's Impression: [address] [address] XRay Report Signed Patient: Mona Wright MR#: [id number] : 1950 Acct:[id number] Age/Sex: 74 / F Date of Service: 09/04/24 Loc: ED Accession Number: [id number] Procedure: XR wrist RT min 3V Ordering Provider: Andry Lane D.O. PROCEDURE: XR WRIST RT MIN 3V INDICATIONS: fall/swelling/pain TECHNIQUE: 4 views of the wrist were acquired. COMPARISON: None. FINDINGS: Bones: No fractures or dislocations. No suspicious bony lesions. Soft tissues: No suspicious soft tissue calcifications. IMPRESSION: No acute bony abnormality. Postreduction x-ray left wrist: Radiologist's Impression: [address] [address] XRay Report Signed Patient: Mona Wright MR#: [id number] : 1950 Acct:[id number] Age/Sex: 74 / F Date of Service: 09/04/24 Loc: ED Accession Number: [id number] Procedure: XR wrist LT min 3V Ordering Provider: Andry Lane D.O. PROCEDURE: XR WRIST LT MIN 3V INDICATIONS: post reduction fx TECHNIQUE: 3 views of the wrist were acquired. COMPARISON: [facility], CR, XR WRIST LT MIN 3V, 09/04/2024, 19:01. FINDINGS AND IMPRESSION: Impacted angulated distal radius fracture with improved alignment. Dorsal angulation persists seen on lateral view. Ulnar styloid fracture again seen. Cast material in place. Background degenerative changes. MDM Narrative Medical decision making narrative: 74-year-old female without any significant past medical history presenting to the emergency department from home for evaluation of bilateral wrist pain, states that she had a mechanical trip and fall while on rocks, no LOC no blood thinners on exam is tenderness to palpation of the left wrist mild gross deformity but neurovascularly intact. X-ray did show comminuted wrist fracture, patient was consented for procedural sedation. Patient had successful procedural sedation with reduction here in the emergency department, patient was given strict return precaution was placed in splint and sling and instructed follow up with Orthopedic surgery in outpatient setting, she verbalized understanding of this and agrees to being discharged home with outpatient follow up Discharge Plan Departure Patient Disposition: Home Clinical Impression: Distal radial fracture Instructions: How to Take Care of Your Splint Activity Restrictions/Additional Instructions: Please follow up with Orthopedic surgery Please read the discharge instructions sheet carefully and bring all papers to all doctor follow-up visits, as it may contain information that your doctor may want to see. Disease processes change and evolve, if your symptoms worsen or if you develop any new symptoms that are concerning to you please return for evaluation. Your evaluation today does not show any evidence of any life- threatening/serious illnesses requiring admission to the hospital or surgery. Please follow-up with your doctor for re-evaluation in approximately 1 day. Seek immediate medical attention for any worrisome symptoms. *If you do not have a primary care provider please contact the [facility] Resource line at [phone]. They will ask some questions about your medical history and help get you set up with a doctor in the community. Prescriptions: No Action calcium 600 mg Capsule 600 mg PO DAILY alendronate 70 mg tablet 70 mg PO QWEEK Referrals: Robinson Varma MD [Physician, Orthopedic Surgery] Tarik Menjivar MD [Primary Care Provider, Internal Medicine] Stand Alone Forms: Patient Portal/API
[2024-09-04] MEDS: TET,DIPH,PERTUSS(ACELL),VAC/PF 0.5 ML SYRINGE IM (22:13)
[2024-09-04] MEDS: SODIUM CHLORIDE 0.9% 1,000 ML 1000 ML IV (22:21)
[2024-09-04] MEDS: propofoL 200 MG/20 ML VIAL 50 MG IV (22:40)
--- NOTE | 2024-09-04 22:50 | DI.RAD.S_ITS ---
PROCEDURE: XR WRIST LT MIN 3V INDICATIONS: post reduction fx TECHNIQUE: 3 views of the wrist were acquired. COMPARISON: , , XR WRIST LT MIN 3V, 09/04/2024, 19:01. FINDINGS AND IMPRESSION: Impacted angulated distal radius fracture with improved alignment. Dorsal angulation persists seen on lateral view. Ulnar styloid fracture again seen. Cast material in place. Background degenerative changes. Dictated by: Marco Cannon M.D. on 09/04/2024 at 23:50 Approved by: Marco Cannon M.D. on 09/04/2024 at 23:51
[2024-09-04] MEDS: MORPHINE 2 MG/ML INJ IV (23:44)
[2024-09-05] VITALS: BP 141/75; PULSE 57; RESP 15; O2SAT 98
[2024-09-05] MEDS: OXYCODONE/APAP 5/325 PREPACK 1 BOTTLE MISC (00:13)
== END 2024-09-05 00:26 | disposition home or self-care (01) ==
PROVIDERS: Emergency Provider Student in an Organized Health Care Education/Training Program; PCP Family Medicine
DX: S52.502A Unspecified fracture of the lower end of left radius, initial encounter for closed fracture (principal); W01.0XXA Fall on same level from slipping, tripping and stumbling without subsequent striking against object, initial encounter; Z23 Encounter for immunization
CPT/HCPCS: 25605; 73110; 90471; 96361; 96374; 99152; 99285; 90715; J2270; J2704